=== PATIENT | male | born 1995 | race Caucasian/White ===

== ENCOUNTER 2017-03-04 10:51 | Day surgery (SDC) | payer OTHER ==
[~2017-03-04 10:51] MED LIST: CEFAZOLIN 2 GM/D5W RTU 2 GM/50 ML RTUPB IV PRN; DEXAMETHASONE SOD PHOSPHATE INJ 4 MG/1 ML VIAL ONE; LIDOCAINE 2% INJ-PF (20 MG/ML) 2 ML AMPUL ONE; ONDANSETRON HCL INJ/PF 4 MG/2 ML SDV ONE
[2017-03-04] MEDS ORDERED: FENTANYL CITRATE INJ/PF 100 MCG/2 ML AMPUL ONE (13:04)
[2017-03-04] MEDS ORDERED: PROPOFOL INJ 200 MG/20 ML VIAL IV ONE (13:05)
[2017-03-04] MEDS ORDERED: MIDAZOLAM 2 MG/2 ML INJ ONE (13:05)
[2017-03-04] MEDS ORDERED: HYDROMORPHONE HCL INJ/PF 2 MG/ML AMPULE ONE (13:05)
[2017-03-04] MEDS ORDERED: BUPIVACAINE HCL 0.5 % INJ/PF 30 ML SDV ONE (13:05)
[2017-03-04] MEDS ORDERED: ACETAMINOPHEN 100 ML IV ONE (13:05)
[2017-03-04] MEDS ORDERED: CEFAZOLIN INJ 1 GM VIAL ONE (13:12)
[2017-03-04] MEDS ORDERED: FENTANYL CITRATE INJ/PF 100 MCG/2 ML AMPUL IV PRN ×3 (13:52)
[2017-03-04] MEDS ORDERED: ONDANSETRON HCL INJ/PF 4 MG/2 ML SDV IV PRN ×2 (13:52→16:18)
[2017-03-04] MEDS ORDERED: MEPERIDINE HCL/PF INJ 25 MG/1 ML DISP.SYRIN IV PRN (13:52)
[2017-03-04] MEDS ORDERED: PROMETHAZINE HCL INJ 25 MG/1 ML VIAL IV PRN ×2 (13:52)
[2017-03-04] MEDS ORDERED: OXYCODONE-ACETAMINOPHEN 5-325 MG TABLET PO PRN ×3 (13:52→16:18)
[2017-03-04] MEDS ORDERED: DIPHENHYDRAMINE HCL 50 MG/ML VIAL IV PRN (13:52)
[2017-03-04] MEDS ORDERED: MORPHINE SULFATE 10 MG/ML INJ IV PRN (13:52)
--- NOTE | 2017-03-04 15:53 | RADIOLOGY REPORT (SQ) ---
EXAM DESCRIPTION: NO CHG FLUORO; WRIST RIGHT 2 VIEWS COMPLETED DATE/TIME: 03/04/2017 3:35 pm REASON FOR STUDY: ORIF RT WRIST S62.021K DISP FX OF MID 3RD OF NAV[employer] BONE OF R WRS, 7THK COMPARISON: None. FLUOROSCOPY TIME: 1.4 minutes 8 images saved to PACS. TECHNIQUE: Intra-operative images acquired during surgical procedure to evaluate progress. NUMBER OF IMAGES: 8 LIMITATIONS: None. FINDINGS: PA and and screw fixation of scaphoid fracture. Alignment is anatomic. IMPRESSION: IMAGE(S) OBTAINED DURING PROCEDURE. COMMENT: Quality ID [id number]: Final reports for procedures using fluoroscopy that document radiation exp osure indices, or exposure time and number of fluorographic images (if radiation exposure indices are not available) Please consult full operative report of the attending physician for description of the procedure. TECHNICAL DOCUMENTATION: JOB ID: [id number] [employer]- All Rights Reserved
[2017-03-04] MEDS: FENTANYL CITRATE INJ/PF 100 MCG/2 ML AMPUL ONE ×2 (16:12→16:30)
[2017-03-04] MEDS ORDERED: HYDROMORPHONE HCL INJ/PF 2 MG/ML AMPULE IV PRN (16:18)
--- NOTE | 2017-03-04 16:18 | PDOC DISCHARGE SUMMARY ---
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 Eduardo Araujo @ [facility] to be seen in 10-14 days or as scheduled [place]: [place]: [place]: Ice and elevate Keep splint clean/dry/intact. If your fingers become numb please unwrap the Gama wrap but leave the splint in place, if the sensation does not return within 30 minutes please return to the emergency department. May begin finger range of motion attempting to make full fist. Please use ibuprofen (Motrin or Advil) 600-800 mg every 8 hours as needed for pain or fever. You may also use acetaminophen (Tylenol) 1000 mg every 4-6 hours as needed for pain or fever. Please be aware that many medications contain acetaminophen, do not exceed a total of 1000 mg of acetaminophen every 6 hours. If ibuprofen and acetaminophen are not sufficient for your pain you may take the Percocet. Please be aware that the Percocet does contain Tylenol. Stool softener of choice when on pain medication. Prescriptions: Oxycodone HCl/Acetaminophen [Percocet 5-325 mg Tablet] 1 - 2 tab PO ASDIR PRN # 45 tablet PRN Reason: Discharge Diet: As Tolerated Respiratory Treatments at Home: Deep Breathing/Coughing, Incentive Spirometer Discharge Activity: No Lifting Over 10 Pounds, No Lifting/Push/Pulling Report the Following to Your Physician Immediately: Fever over 101 Degrees, Unusual Bleeding, Redness, Swelling, Warmth, Increased Soreness
--- NOTE | 2017-03-04 16:18 | Operative Report ---
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 Patient was seen at the [facility] where x-rays demonstrated scaphoid fracture. At that point was sent to the reviewed patient's radiographs and CT scan was demonstrated a fracture but there was questionable chronicity given the sclerosis and cystic changes at the fracture site thus a MRI was obtained which confirmed likely acute on chronic scaphoid fracture but no avascular necrosis. At that point treatment options were discussed risks and benefits were explained to the patient verbalized understanding and consented for the procedure. Procedure In Detail: Patient was seen and evaluated in the preoperative holding area. The RIGHT upper extremity was initialized and marked. Patient received 2g of Ancef IV for bacterial prophylaxis. Patient was taken back to the operative room where transferred to the operative table and placed under general anesthesia. Once they were adequately anesthetized a nonsterile tourniquet was placed on the upper extremity. A surgical team debriefing was performed ensuring all instrumentation was available, the surgical procedure was discussed with possible concerns reviewed. The upper extremity was prepped with chlorhexidine and alcohol and draped in a sterile fashion. A timeout was done identifying correct patient, procedure and extremity everyone in attendance agree with this and verbalized no concerns. The extremity was exsanguinated the tourniquet was inflated to 250 mmHg. Curvilinear skin incision was made across the flexor sheath towards the tuberosity of the trapezium and radial to the FCR. Blunt dissection was performed. The flexor carpi radialis tendon sheath was then opened along the floor and retracted in the ulnar direction. Radial artery was identified and retracted medially. The floor of the FCR was further released exposing the scaphoid tuberosity. A branch of the palmar radial artery was identified and coagulated with bipolar cautery. I then split the capsule and the most distal portion of the RSC ligament exposing the fracture site. There was notable fragmentation at the fracture site more indicative of nonunion as opposed to acute fracture. Once the fracture site was exposed under C arm fluoroscopy a small stab incision was made laterally and a tissue protector placed a 0.045 K wire was placed from the distal radius into the lunate while the wrist was flexed correcting patient's DISI deformity. Once correction of DISI was confirmed with C-arm fluoroscopy. The wrist was extended and the nonunion site was debrided to normal-appearing cancellus bone utilizing a curette and rongeur. I then measured the defect that would require correction. The scaphoid was pinned to the adjacent capitate maintaining reduction. I then turned my attention to harvesting of the autograft. The pronator quadratus was split longitudinally the periosteum was carefully elevated a 0.045 K wire was then placed radially proximal and ulnar distally to correspond with the measured defect. Irrigation and a sagittal saw was utilized to remove the bone graft from the volar distal radius. Extra cancellus bone was also harvested and placed on the back table. The wound was then copiously irrigated with saline. The defect would later be filled with allograft bone chips. Once again turned my attention to the scaphoid. The appropriate size K wire for a mini Acutrak screw was placed in the center center position. Under direct visualization had good fixation of the scaphoid proximally and distally. The appropriate size Acutrak screw was then measured. The K wire was reversed and the defect filled with cancellus bone and corticocancellus bone graft was secured volarly. A 0.045 K wire was then placed volarly to avoid extrusion of my graft at the completion of this case with us will be cut below the skin. I then completed fixation of the scaphoid by drilling the normal cortex and placing a 22 mm Acutrak screw. C-arm fluoroscopy was obtained confirming latter day of scaphoid reduction no evidence of hardware extrusion. There is no crepitus with wrist range of motion under direct visualization there is good stability of the scaphoid fracture. Previous K wires were removed. The RSC ligament was then closed with interrupted 3-0 Vicryl suture. Tourniquet was deflated any peripheral bleeding was coagulated with bipolar cautery into the wound was dry. Subcutaneous tissues were closed with interrupted 4-0 Monocryl suture. Skin was closed with a running 4-0 nylon suture. 20 cc of 0.5% Marcaine without epinephrine was injected for postoperative pain control. Patient was placed in a thumb spica splint. Sponge counts, instrument counts, needle counts counts were correct. Patient was then awoken from anesthesia. Transferred from the operating room table to the operating room stretcher. There was no intraoperative complications patient tolerated procedure well stable to PACU. Postoperative plan: Patient will follow-up the office in 2 weeks at which point we will obtain radiographs. He will be then placed in a thumb spica cast for 6 weeks. At that 6 week follow-up will proceed with pin removal.
[2017-03-04] MEDS ORDERED: ONDANSETRON 4 MG TAB.RAPDIS ONE (18:10)
[2017-03-04 18:28] VITALS: BP 131/83
== END 2017-03-04 18:26 | disposition home or self-care (01) ==
LOC: OROUT 10:51
PROVIDERS: ATTEND Orthopaedic Surgery
PROC: 0PRM07Z Replacement of Right Carpal with Autologous Tissue Substitute, Open Approach (ICD-10-PCS; 2017-03-04)
PROC: 0PSM04Z Reposition Right Carpal with Internal Fixation Device, Open Approach (ICD-10-PCS; principal; 2017-03-04 13:00)
DX: S62.021K Displaced fracture of middle third of navicular [scaphoid] bone of right wrist, subsequent encounter for fracture with nonunion (principal); W19.XXXD Unspecified fall, subsequent encounter; M25.531 Pain in right wrist
CPT/HCPCS: 73100; 25440; C1713 ×2; C1769; J2250; J0690; J1100; S0119; J3010; J1170; J2405; J2704; J0131; J3490; 01830